=== PATIENT | female | born 1955 | race Caucasian/White ===

== ENCOUNTER → 2021-08-06 | Emergency (ER) | payer BC ==
[~2021-08-06] MED LIST: MAG HYDROX/AL HYDROX/SIMETH 30 ML UNIT-DOSE CUP ONE; ONDANSETRON 4 MG/2 ML VIAL ONE; SUCRALFATE 1 GM TABLET (FP) ONE
[2021-08-06 21:51] VITALS: BP 164/59; PULSE 83; TEMP 98.2; BMI 27.1
== END | disposition home or self-care (01) ==
LOC: JER 21:46
DX: R00.2 Palpitations (principal); I10 Essential (primary) hypertension
CPT/HCPCS: 93005; 93010; 99283-25